=== PATIENT | female | born 1965 | race Caucasian/White ===

== ENCOUNTER → 2020-06-28 | Outpatient (CLI) | payer BC ==
[~2020-06-28] MED LIST: ARMOUR THYROID180 M1 PO; EDARBYCLOR 40-1 EAC1 PO; KRILL OIL 1,001 EAC1 PO; PROGESTERONE200 MG PO; VITAMIN D31250 MCG PO
== END ==
LOC: LAB 07:56
PROVIDERS: ATTEND Specialist
DX: Z01.812 Encounter for preprocedural laboratory examination (principal); Z20.822 Contact with and (suspected) exposure to COVID-19

== ENCOUNTER → 2020-07-01 | Outpatient (CLI) | payer BC ==
[~2020-07-01] VITALS: Ht 165.1 cm; Wt 136.1 kg
--- NOTE | ~2020-07-01 | P ---
[facility] [place] [address] PROCEDURE REPORT Name: ANDREINA ROMEO Room #: REG [facility]#: [id number] Admission: 07/01/20 Attend Phys: Justus Preston Discharge: Date of : 67 Report #: [id number] THIS REPORT FOR: cc: Physician not on staff Physician not on staff Justus Orlando MD ~ DATE OF SERVICE: 07/01/2020 PROCEDURE PERFORMED: Colonoscopy with polypectomies. HISTORY OF PRESENT ILLNESS: The patient is a 54-year-old female who presents today for routine screening colonoscopy. She denies any symptoms. She does have a family history of colon cancer in her mother. No previous history of colonoscopy. DESCRIPTION OF PROCEDURE: The risks and benefits of the procedure were explained to the patient, those risks including but not limited to bleeding, perforation and the risk of sedation. She understood these risks and gave informed consent. Sedation was given using propofol per anesthesia. Next, a digital rectal exam was initially performed, which was normal. Next, using a standard Olympus colonoscope, the scope was placed in the patient's anus and advanced under direct vision to the cecum. The overall prep was good. The cecum and ileocecal valve were normal in appearance. Ascending, transverse and descending colon were all normal. In the sigmoid colon, 2 polyps were noted. The smallest was 4 mm in size, removed with cold forceps, the larger was 6 mm and removed by snare cautery, otherwise normal. The rectal mucosa was normal. On retroflexion, no abnormalities were noted. The scope was then withdrawn and the procedure terminated. The patient tolerated the procedure well. IMPRESSION: 1. Two small colonic polyps. 2. Otherwise, normal colonoscopy. RECOMMENDATIONS: 1. Await biopsy results. 2. Repeat colonoscopy in 5 years. Thank you for allowing me to participate in her care. By: [id number] Justus Orlando MD /nt
--- NOTE | 2020-07-04 18:06 | PATH ---
[facility] [address] [place] [address] PATHOLOGY RPT PROCEDURE Name: OUSMANEGRACIELAJOANIE E Room #: REG TYLER Caldwell.#: [id number] Admission: 07/01/20 Date of : 67 Discharge: Report #: [id number] Path Case #: [id number] [facility] Accession Number: [id number] . 01 Material submitted: . sigmoid colon - BIOPSY SIGMOID POLYP X2 . 01 Clinical history: . COLONOSCOPY SCREENING COLON CANCER POLYP DTS/COLONOSCOPY/SCREENING . 02 Diagnosis: Polyp x 2, sigmoid polyp, endoscopic biopsy: - One fragment showing a tubular adenoma; negative for high-grade dysplasia. - The remainder fragments showing hyperplastic polyp without any dysplasia. (IUV:pit 07/04/2020) QTP 07/04/2020 1708 Local . 02 Electronically signed: . Yue Nguyen MD, Pathologist NPI- [id number] . 01 Gross description: . Received in formalin labeled "Joanie Romeo biopsy sigmoid colon polyp" are 3 fragments of kern-brown soft tissue measuring in aggregate 0.7 x 0.4 x 0.4 cm. The specimen is submitted entirely in A1. ([facility]; 07/02/2020) . . . . GZA/GZA 07/02/2020 1058 Local . 02 Pathologist provided ICD-10: D12.6 . 02 CPT . 451647 Specimen Comment: A courtesy copy of this report has been sent to [phone] Specimen Comment: Report sent to Performed at: [address], [place], [place] [id number] MD Kyle Shea MD Phone: [phone] [address] [address] PATHOLOGY RPT PROCEDURE Name: JOANIE ROMEO Room #: REG TYLER Hoffman#: [id number] Admission: 07/01/20 Date of : 67 Discharge: Report #: [id number] Path Case #: [id number] Performed at: [address] [id number] MD Yue Nguyen MD Phone: [phone]
== END | disposition home or self-care (01) ==
LOC: GI 08:02
PROVIDERS: ATTEND Specialist
DX: Z12.11 Encounter for screening for malignant neoplasm of colon (principal); Z86.010 Personal history of colon polyps; K63.5 Polyp of colon; I10 Essential (primary) hypertension; E03.9 Hypothyroidism, unspecified; M06.9 Rheumatoid arthritis, unspecified; Z98.890 Other specified postprocedural states; Z79.899 Other long term (current) drug therapy; Z90.710 Acquired absence of both cervix and uterus; Z90.49 Acquired absence of other specified parts of digestive tract; Z87.891 Personal history of nicotine dependence
CPT/HCPCS: 62110; 62900